=== PATIENT | female | born 1975 | race African-American/Black ===

== ENCOUNTER 2020-03-08 08:40 | Emergency (ER) | payer BC, OTHER ==
[2020-03-08 08:52] VITALS: BP 148/91; PULSE 80; TEMP 98.2; BMI 25.8
[2020-03-08] MEDS ORDERED: AZITHROMYCIN 500 MG TABLET PO ONE (09:17)
[2020-03-08] MEDS ORDERED: AZITHROMYCIN 500 MG TABLET ONE (09:39)
[2020-03-08 10:14] LABS: PH,URINE 5.5 (5.0-8.0); URINE APPEARANCE Error; URINE BILIRUBIN NEGATIVE (NEGATIVE); URINE COLOR YELLOW; URINE GLUCOSE (UA) NEGATIVE (NEGATIVE); URINE KETONE NEGATIVE (NEGATIVE); URINE LEUK ESTERASE NEGATIVE (NEGATIVE); URINE NITRITE NEGATIVE (NEGATIVE); URINE PROTEIN NEGATIVE (NEGATIVE); URINE UROBILINOGEN 0.2 mg/dL (0.2-1.0)
== END 2020-03-08 10:46 | disposition home or self-care (01) ==
LOC: JER 08:40
DX: B37.9 Candidiasis, unspecified (principal); Z20.2 Contact with and (suspected) exposure to infections with a predominantly sexual mode of transmission
CPT/HCPCS: 36415; 81003; 87070; 87086; 87205; 87491; 87591; 99284-25